=== PATIENT | male | born 1980 | race Caucasian/White ===

== ENCOUNTER 2020-03-30 17:03 | Emergency (ER) | payer MEDICAID ==
[~2020-03-30] VITALS: Ht 170.2 cm; Wt 64.0 kg
[2020-03-30 17:11] VITALS: Ht 170.2 cm; Wt 64.0 kg
[2020-03-30 17:51] VITALS: BP 124/67
== END 2020-03-30 17:51 | disposition home or self-care (01) ==
LOC: ED 17:03
DX: K04.7 Periapical abscess without sinus (principal); Z88.0 Allergy status to penicillin; Z88.5 Allergy status to narcotic agent
CPT/HCPCS: J0696; J7512